=== PATIENT | female | born 1965 | race Caucasian/White ===

== ENCOUNTER 2017-01-28 14:45 | Emergency (ER) | payer MEDICAID ==
[~2017-01-28] VITALS: Ht 165.1 cm; Wt 81.8 kg
[~2017-01-28 14:45] MED LIST: BENZ1TAB61 PO; CLON2TAB2 PO; LAMO25TA5 PO; LEVO125T PO; LITH600C PO; LURA120T PO; METF10002 PO; PROPANOLOL PO
[2017-01-28] MEDS ORDERED: LORazepam 2 MG/ML, 1ML IVPush ONE ×2 (15:00→16:00)
[2017-01-28] MEDS ORDERED: SODIUM CHLORIDE FLUSH 10ML SYR IVF ONE (15:00)
[2017-01-28] MEDS ORDERED: SODIUM CHLORIDE 0.9% 1,000ML IVBOLUS ONE (15:00)
[2017-01-28 15:26] LABS: ASPARTATE AMINO TRANSFERASE 30 U/L (15-37); BLOOD UREA NITROGEN 11 mg/dL (7-18)
[2017-01-28] MEDS ORDERED: LORazepam 2 MG/ML, 1ML ONE (15:32)
[2017-01-28 15:35] LABS: IS PT STATUS REG ER OR PRE ER? YES
[2017-01-28] MEDS ORDERED: AMLO10TA2 PO (15:39)
[2017-01-28 16:53] VITALS: BP 162/100
== END 2017-01-28 17:18 | disposition home or self-care (01) ==
LOC: ED 15:09
DX: R00.2 Palpitations (principal); E05.90 Thyrotoxicosis, unspecified without thyrotoxic crisis or storm; G43.C1 Periodic headache syndromes in child or adult, intractable; F41.1 Generalized anxiety disorder; R06.4 Hyperventilation; I10 Essential (primary) hypertension; Z90.49 Acquired absence of other specified parts of digestive tract
CPT/HCPCS: 36415; 70450; 71010; 80053; 83735; 84436; 84443; 84484; 85025; 93005; 96374; 99285; J2060; J7030

== ENCOUNTER 2017-04-25 14:41 | Observation (INO) | payer MEDICAID ==
[~2017-04-25] VITALS: Ht 175.3 cm; Wt 78.0 kg
[~2017-04-25 14:41] MED LIST changes: +AMLO10TA2 PO
[2017-04-25 15:27] LABS: DAU SCREEN DISCLAIMER
[2017-04-25 15:31] LABS: HEMATOCRIT 36.2 % (34.6-47.8); HEMOGLOBIN 12.1 g/dL (11.7-16.4); WHITE BLOOD COUNT 6.6 x10^3/uL (3.4-10)
[2017-04-25 15:42] LABS: ACETAMINOPHEN 15 mcg/mL (10-30); BLOOD UREA NITROGEN 12 mg/dL (7-18)
[2017-04-25] MEDS ORDERED: POLYETHYLENE GLYCOL 17 GM PACKET PO PRN (17:30)
[2017-04-25 21:42] VITALS: BP 93/67
[2017-04-26] MEDS: LEVOTHYROXINE 125 MCG TABLET PO SCH (06:04)
[2017-04-26 06:13] LABS: HEMOGLOBIN 11.3 g/dL (11.7-16.4); WHITE BLOOD COUNT 4.9 x10^3/uL (3.4-10)
[2017-04-26 06:35] LABS: ASPARTATE AMINO TRANSFERASE 21 U/L (15-37); BLOOD UREA NITROGEN 11 mg/dL (7-18)
[2017-04-26 07:16] LABS: PATH.CAST-FLAG NOT PRESENT; SPERM-FLAG NOT PRESENT; SRC-FLAG NOT PRESENT; XTAL-FLAG NOT PRESENT; YLC-FLAG NOT PRESENT
[2017-04-26 07:34] VITALS: BP 103/65
[2017-04-26] MEDS: SENNA/DOCUSATE TABLET PO SCH (09:00)
[2017-04-26] MEDS: HYDROcodone/APAP 5/325 TABLET PO PRN ×2 (09:23→17:26)
[2017-04-26] MEDS ORDERED: LORazepam 1MG TABLET PO PRN ×3 (18:00)
[2017-04-26] MEDS ORDERED: LORazepam 0.5MG TABLET PO PRN ×2 (18:00→21:00)
[2017-04-26] MEDS ORDERED: LORazepam 2 MG/ML, 1ML IV PRN ×4 (18:00)
[2017-04-26 19:45] VITALS: BP 119/73
[2017-04-27] MEDS: LEVOTHYROXINE 125 MCG TABLET PO SCH (06:31)
[2017-04-27 08:00] VITALS: BP 113/78
[2017-04-27] MEDS: SENNA/DOCUSATE TABLET PO SCH (09:00)
[2017-04-27 14:00] VITALS: BP 113/78
[2017-04-27] MEDS ORDERED: IBUPROFEN 200 MG TABLET PO PRN (15:00)
[2017-04-27] MEDS ORDERED: metFORMIN 850 MG TABLET PO SCH (17:00)
[2017-04-27 19:38] VITALS: BP 127/78
== END 2017-04-28 02:58 ==
LOC: ED 15:50 → EDIP 16:23 → 3E 21:30
PROVIDERS: ADMIT Hospitalist; ATTEND Hospitalist
DX: R45.851 Suicidal ideations (principal); F31.9 Bipolar disorder, unspecified; D64.9 Anemia, unspecified; D75.89 Other specified diseases of blood and blood-forming organs; E03.9 Hypothyroidism, unspecified; F25.9 Schizoaffective disorder, unspecified; F41.1 Generalized anxiety disorder; I10 Essential (primary) hypertension; Z87.891 Personal history of nicotine dependence
CPT/HCPCS: 36415; 80048; 80053; 80307; 80329; 81001; 82040; 82962; 83735; 84439; 84443; 85025; 85610; 99285; G0378; G0479; G0480